=== PATIENT | female | born 1980 | race Caucasian/White ===

== ENCOUNTER 2019-12-23 18:54 | Emergency (ER) | payer OTHER, BC, SELFPAY ==
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
[2019-12-23 18:58] VITALS: BP 140/88; PULSE 73; RESP 16; TEMP 35.9; O2SAT 98; BMI 38.2
[2019-12-23 20:05] VITALS: BP 115/67; PULSE 66; RESP 16; O2SAT 99
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
== END 2019-12-23 21:25 | disposition home or self-care (01) ==
PROVIDERS: Emergency Provider Emergency Medicine; PCP Internal Medicine
DX: S13.4XXA Sprain of ligaments of cervical spine, initial encounter (principal); V43.52XA Car driver injured in collision with other type car in traffic accident, initial encounter; Y93.89 Activity, other specified; Y92.414 Local residential or business street as the place of occurrence of the external cause; Y99.9 Unspecified external cause status
CPT/HCPCS: 70450; 72125; 73502; 99284

== ENCOUNTER 2020-05-29 15:00 | Outpatient (RCR) | payer OTHER, BC, SELFPAY | END 2020-07-08 11:15 | disposition other institution (70) | LOC: HO.PT 15:00 | PROVIDERS: PCP Internal Medicine; Visit Provider Internal Medicine | DX: M54.2 Cervicalgia (principal); M54.9 Dorsalgia, unspecified; M25.569 Pain in unspecified knee; V89.2XXA Person injured in unspecified motor-vehicle accident, traffic, initial encounter | CPT/HCPCS: 97110; 97161; 97530 ==

== ENCOUNTER 2022-09-29 08:01 | Emergency (ER) | payer BC, SELFPAY ==
[2022-09-29] VITALS (8 sets, daily range): BP systolic 95–109; BP diastolic 59–73; PULSE 60–93; RESP 14–22; TEMP 36.4–37; O2SAT 94–96; BMI 38.3
--- NOTE | ~2022-09-29 | US_ITS ---
EXAMINATION: US PELVIC AND TRANSVAGINAL CLINICAL INFORMATION: Pelvic pain. Abnormal CT. LMP in August 2022. COMPARISON: CT abdomen/pelvis done earlier the same day. TECHNIQUE: Ultrasound of the pelvis is performed using both transabdominal and transvaginal transducers along with Doppler. Transvaginal imaging is performed due to inadequate visualization transabdominally. FINDINGS: Uterus: The uterus is anteverted and measures 8.3 x 4.4 x 5.2 cm. The endometrium is not well seen. Nabothian cysts. The uterus is smooth in contour and has normal myometrial echogenicity. There appears to be a subserosal, exophytic fibroid at the right side of the uterine fundus measuring 5.6 x 6.3 x 7.3 cm. No additional myometrial lesion. Adnexa: The right ovary is not well seen. The left ovary is sonographically unremarkable measuring 3.0 x 1.9 x 2.3 cm for a volume of 8.4 mm. No nabothian ovarian lesion. Normal Doppler detectable vascular flow within the left ovary. Moderate pelvic free fluid. US/US pelvic and transvaginal IMPRESSION: 1. Subserosal, exophytic right fundal probable fibroid measuring up to 7.3 cm. 2. Endometrium not well seen. 3. Sonographically unremarkable left ovary. Right ovary not seen. 4. Moderate pelvic free fluid.
--- NOTE | ~2022-09-29 | CT_ITS ---
EXAMINATION: CT ABDOMEN AND PELVIS WITH CONTRAST CLINICAL INFORMATION: Diffuse abdominal pain. COMPARISON: None available. TECHNIQUE: Multidetector volumetric images were obtained from the superior aspect of the liver through the pubic symphysis following administration 85 mL of Omnipaque 350 intravenous contrast. Sagittal and coronal reformatted images were obtained on the technologist's workstation. Oral contrast: No This CT examination was performed using dose optimization techniques as appropriate, variously including the following: *Automated exposure control *Adjustment of mA and/or kV according to patient size (this includes techniques or standardized protocols for targeted exams where dose is matched to indication/reason for exam; i.e. extremities or head) *Use of iterative reconstruction technique DLP: 964 mGy-cm FINDINGS: LUNG BASES: Mild bibasilar linear atelectasis or scarring. No pleural or pericardial effusions. LIVER, GALLBLADDER, AND BILIARY TREE: Mild diffuse decreased attenuation. Small cyst towards the dome demonstrates benign features. No gallbladder/biliary abnormality. PANCREAS: Unremarkable. SPLEEN: Unremarkable. ADRENAL GLANDS: Unremarkable. KIDNEYS AND URETERS: The kidneys are normal in size, shape, and attenuation. No hydronephrosis, hydroureter, or calculi seen. No perinephric stranding. BLADDER: Unremarkable. GASTROINTESTINAL TRACT: The stomach and small bowel are unremarkable. A retrocecal appendix is seen without overt abnormality. Colon and rectum are unremarkable. Mild infiltrative changes in the mesenteric fat. ABDOMINAL WALL: Small fat-containing umbilical hernia without abnormality. LYMPH NODES: No lymphadenopathy. VASCULAR: Unremarkable. PELVIC VISCERA: Anteverted/anteflexed uterus with a large subserosal/pedunculated fibroid is seen off of the superior margin of the fundus measuring approximately 7.7 x 6.6 x 5.3 cm. Probable smaller intramural fibroids are noted. Mild free fluid surrounds the uterus. Prominent gonadal veins are noted bilaterally. No definitive ovarian abnormality. Low-attenuation is seen in the cervix and vaginal canal with obscured margins. OSSEOUS STRUCTURES: Mild to moderate degenerative disc disease at L5-S1. CT/CT abdomen pelvis w IV con IMPRESSION: 1. Fibroid uterus with abnormal appearance of the cervix and vaginal canal without surrounding free fluid and infiltrative changes. Prominent gonadal veins bilaterally as well. This could be secondary to an infectious/inflammatory process. Malignancy would be less likely but cannot be excluded. Changes in the mesenteric fat is presumed reactive to this process. Gynecologic consultation is recommended recommended. Short-term follow-up contrast-enhanced CT and/or pelvic MRI recommended as indicated.
--- NOTE | 2022-09-29 08:12 | ED.ABDPAIN ---
HPI - Abdominal Pain General Chief Complaint: Abdominal Pain Stated Complaint: abd pain Time Seen by Provider: 09/29/22 08:03 Source: patient and family Mode of arrival: ambulatory Limitations: no limitations History of Present Illness HPI narrative: 42 yo female with history of PCOS, IBS-D, pre-diabetic, asthma here with complaints of diffuse abdominal pain since with dysuria, urinary frequency. No vomiting. Has had diarrhea but history of same. No fevers, chills, vaginal discharge, rashes/lesions, hematuria. LMP 09/03. No abdominal surgical history Related Data Previous Rx's Medication Instructions Recorded cefuroxime axetil 500 mg tablet 500 mg PO BID #14 tabs 09/29/22 oxycodone 5 mg tablet 5 mg PO Q8H PRN pain #5 tabs 09/29/22 phenazopyridine 200 mg tablet 200 mg PO TID PRN pain 6 doses #10 09/29/22 (Pyridium) tabs Allergies Allergy/AdvReac Type Severity Reaction Status Date / Time egg Allergy Itching Verified 12/23/19 19:05 Sulfa (Sulfonamide AdvReac Diarrhea Verified 12/23/19 19:05 Antibiotics) Review of Systems Review of Systems Yes all other systems are reviewed and are negative Constitutional: Reports no additional constitutional complaints, Denies body ache(s), Denies chills, Denies fever(s), Denies headache(s) and Denies weakness Eyes: Reports no additional eye complaints and Denies change in vision Reports system reviewed and no additional complaints, except as documented, Denies dizziness, Denies headache(s), Denies nasal congestion, Denies nasal discharge and Denies neck pain Cardiovascular: Reports no additional cardiovascular complaints, Denies chest pain, Denies leg edema and Denies dyspnea Respiratory: Reports no additional respiratory complaints, Denies cough and Denies dyspnea Gastrointestinal: Reports no additional gastrointestinal complaints, Reports abdominal pain, Reports diarrhea, Denies nausea and Denies vomiting Genitourinary: Reports no additional female genitourinary complaints, Denies hematuria, Reports dysuria, Denies pelvic pain, Denies flank pain, Denies urinary incontinence, Denies urinary hesitancy, Denies urinary urgency and Denies vaginal discharge Musculoskeletal: Reports no additional musculoskeletal complaints, Denies back pain, Denies arthralgias, Denies joint swelling, Denies neck pain, Denies numbness and Denies tingling Skin/Breast: Reports system reviewed and no additional complaints, except as docu and Denies rash Reports system reviewed and no additional complaints, except as documented, Denies dizziness, Denies headache(s), Denies numbness, Denies tingling and Denies weakness PMF Past Medical History Attestation statement: The following information was validated with the patient. Source: old records reviewed and nursing notes reviewed Medical History IBS (irritable bowel syndrome) PCOS (polycystic ovarian syndrome) Social History Social History Alcohol intake: never Smoked in Last 30 Days: No Use of substances other than those prescribed or required for medical reasons: No Advance Directives: No Advance Directives Information Provided: Yes Physical Exam ED Vital Signs: Vital Signs - 24 hr 09/29/22 08:07 09/29/22 09:02 09/29/22 10:00 Temperature 98.6 F 98.6 F Pulse Rate 93 60 63 Respiratory Rate 18 15 15 Blood Pressure 109/73 106/59 L 103/59 L Pulse Oximetry 95 96 95 Oxygen Delivery Method Room Air Room Air Room Air 09/29/22 10:44 09/29/22 10:50 09/29/22 12:24 Temperature 97.6 F 98 F Pulse Rate 62 66 65 Respiratory Rate 17 14 22 H Blood Pressure 100/66 100/66 Pulse Oximetry 95 94 Oxygen Delivery Method Room Air Room Air 09/29/22 12:31 Temperature 97.6 F Pulse Rate Respiratory Rate Blood Pressure Pulse Oximetry Oxygen Delivery Method BMI result Body Mass Index 38.3 Const General: cooperative, healthy appearing, comfortable and no acute distress Orientation/consciousness: patient oriented x3 Limitations: no limitations HENMT Head: Yes normal to inspection Ears: hearing grossly normal bilaterally Eyes General: appearance normal, both eyes and all related structures Pupils: Equal, round and reactive pupils present Neck Neck: Yes normal visual inspection and Yes full ROM Chest Chest palpation & inspection: normal inspection of the chest Resp Effort & Inspection: normal respiratory effort Auscultation: clear to auscultation bilaterally Cardio Rate: regular rate Rhythm: regular rhythm Peripheral pulses: Peripheral pulses 2+ throughout GI Inspection: Yes normal to inspection Palpation (GI): Soft to palpation, Tenderness to palpation present (GI) (diffuse TTP) with no rebound tenderness and no guarding Auscultation: normal bowel sounds 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 uterine on bimanual No adnexal tenderness or CMT General: Yes no CVA tenderness External Female Exam: normal external appearance Speculum Exam - Vagina: normal appearance of the vagina Speculum Exam - Cervix: normal appearance of the cervix Bimanual exam- vagina & uterus: normal bimanual exam Bimanual Exam- Adnexa, other: normal adnexae Back/Spine/Pelvis Back: no CVA tenderness Skin General skin exam: no rashes or lesions noted Neuro General: patient oriented x3 and moves all extremities Cranial nerves: Yes Equal, round and reactive pupils present Cognition (Neuro): normal cognition Gait exam (Neuro): Normal gait present Extrem General: Yes normal to inspection, Yes no pedal edema and Yes no calf tenderness Course Course Course Narrative: 1024- CT A/P shows IMPRESSION: ? 1. Fibroid uterus with abnormal appearance of the cervix and vaginal canal without surrounding free fluid and infiltrative changes. Prominent gonadal veins bilaterally as well. This could be secondary to an infectious/inflammatory process. Malignancy would be less likely but cannot be excluded. ? Changes in the mesenteric fat is presumed reactive to this process. Gynecologic consultation is recommended recommended. Short-term follow-up contrast-enhanced CT and/or pelvic MRI recommended as indicated. Will need pelvic US, pelvic exam with CT NG, BV panel Has UTI-will give rocephin Reevaluation(s) Reevaluation #1: 1245-ultrasound shows a uterus in fibroid. The left ovary is visualized with normal vascular flow. The right ovary is not visualized. Low concern for ovarian torsion. Pain has been gradual in onset over the last few days. There is no colicky pain to suggest intermittent torsion. I did review the findings with the patient. She should follow up outpatient with gynecology. She has low concern for STI. We did send cultures. Reviewed worrisome signs and symptoms of when to return to the emergency room. Comfortable plan for discharge home. Medical Decision Making Medical Decision Making MDM Narrative: 42 yo female here with diffuse AP, dysuria/urinary frequency since . On exam diffuse abdominal TTP with no rebound or guarding. +BS. Will need labs, UA/ur preg, CT A/P, IV pain control Differential Diagnosis Differential Diagnoses: The differential diagnosis associated with the presentation includes pancreatitis, appendicitis, renal colic/pyelo/uti Lab Data MDM Lab Attestation statement: I reviewed the patient's lab results. 09/29/22 08:36 09/29/22 08:36 Labs: Lab Results 09/29/22 09/29/22 09/29/22 Range/Units 08:36 08:36 10:02 WBC 6.8 (4.8-10.8) X10*3/uL RBC 4.48 (4.20-5.50) X10*6/uL Hgb 12.8 (12.0-16.0) g/dl Hct 39.9 (37.0-47.0) % MCV 89.1 (80.0-98.0) fL MCH 28.6 (27.0-33.0) pg MCHC 32.1 (31.0-35.0) g/dl RDW 13.6 (11.0-16.0) % Plt Count 204 (160-400) X10*3/uL MPV 11.2 (9.4-12.3) fL Immature Gran % (Auto) 0.3 (0.0-0.4) % Neut % (Auto) 66.0 (45-73) % Lymph % (Auto) 23.1 (20-40) % Starke % (Auto) 7.5 (2-11) % Eos % (Auto) 2.8 (0-4) % Baso % (Auto) 0.3 (0-2) % Lymph # (Auto) 1.6 (1.2-4.9) X10*3/uL Starke # (Auto) 0.5 (0.1-1.2) X10*3/uL Eos # (Auto) 0.2 (0.0-0.4) X10*3/uL Baso # (Auto) 0.0 (0.0-0.2) X10*3/uL Abs Immat Gran (auto) 0.02 (0.00-0.03) X10*3/uL Absolute Neuts (auto) 4.5 (2.0-8.3) x10*3/uL Absolute Nucleated RBC 0.000 (0.0-0.012) X10*3/uL Nucleated RBC % (auto) 0.0 (0.0-0.2) /100WBC Sodium 139 (135-145) mmol/L Potassium 4.0 (3.3-5.1) mmol/L Chloride 107 (96-108) mmol/L Carbon Dioxide 26 (22-29) mmol/L Anion Gap 10 L (12-20) BUN 6 L (9-16) mg/dL Creatinine 0.68 (0.5-1.4) mg/dL Estim Creat Clear Calc 117.6 Estimated GFR > 60 Random Glucose 121 H (60-115) mg/dL Calcium 9.7 (8.4-10.2) mg/dL Total Bilirubin 0.7 (0.0-1.0) mg/dL Direct Bilirubin 0.2 (0.0-0.5) mg/dL AST 31 (5-31) U/L ALT 25 (0-31) U/L Alkaline Phosphatase 83 (39-117) U/L Total Protein 7.0 (6.5-8.0) g/dL Albumin 3.3 L (3.5-5.0) g/dL Lipase 6 L (8-78) U/L Urine Color Yellow Urine Appearance Clear Urine pH 6.0 (5.0-9.0) Ur Specific Bruno >= 1.030 H (1.005-1.025) Urine Protein Negative (Neg-Trace) mg/dL Urine Glucose (UA) Negative (Negative) mg/dL Urine Ketones Negative (Negative) mg/dL Urine Blood Negative (Negative) Urine Nitrite Negative (Negative) Ur Leukocyte Esterase Trace H (Negative) Urine RBC 0-2 (0-2) /HPF Urine WBC 6-10 H (0-5) /HPF Ur Squamous Epith Cells 6-10 (0-2) /HPF Urine Bacteria 1+ (None Seen) Hyaline Casts 0-2 (0-2) /LPF Urine Test (NEGATIVE) 09/29/22 Range/Units 10:02 WBC (4.8-10.8) X10*3/uL RBC (4.20-5.50) X10*6/uL Hgb (12.0-16.0) g/dl Hct (37.0-47.0) % MCV (80.0-98.0) fL MCH (27.0-33.0) pg MCHC (31.0-35.0) g/dl RDW (11.0-16.0) % Plt Count (160-400) X10*3/uL MPV (9.4-12.3) fL Immature Gran % (Auto) (0.0-0.4) % Neut % (Auto) (45-73) % Lymph % (Auto) (20-40) % Starke % (Auto) (2-11) % Eos % (Auto) (0-4) % Baso % (Auto) (0-2) % Lymph # (Auto) (1.2-4.9) X10*3/uL Starke # (Auto) (0.1-1.2) X10*3/uL Eos # (Auto) (0.0-0.4) X10*3/uL Baso # (Auto) (0.0-0.2) X10*3/uL Abs Immat Gran (auto) (0.00-0.03) X10*3/uL Absolute Neuts (auto) (2.0-8.3) x10*3/uL Absolute Nucleated RBC (0.0-0.012) X10*3/uL Nucleated RBC % (auto) (0.0-0.2) /100WBC Sodium (135-145) mmol/L Potassium (3.3-5.1) mmol/L Chloride (96-108) mmol/L Carbon Dioxide (22-29) mmol/L Anion Gap (12-20) BUN (9-16) mg/dL Creatinine (0.5-1.4) mg/dL Estim Creat Clear Calc Estimated GFR Random Glucose (60-115) mg/dL Calcium (8.4-10.2) mg/dL Total Bilirubin (0.0-1.0) mg/dL Direct Bilirubin (0.0-0.5) mg/dL AST (5-31) U/L ALT (0-31) U/L Alkaline Phosphatase (39-117) U/L Total Protein (6.5-8.0) g/dL Albumin (3.5-5.0) g/dL Lipase (8-78) U/L Urine Color Urine Appearance Urine pH (5.0-9.0) Ur Specific Bruno (1.005-1.025) Urine Protein (Neg-Trace) mg/dL Urine Glucose (UA) (Negative) mg/dL Urine Ketones (Negative) mg/dL Urine Blood (Negative) Urine Nitrite (Negative) Ur Leukocyte Esterase (Negative) Urine RBC (0-2) /HPF Urine WBC (0-5) /HPF Ur Squamous Epith Cells (0-2) /HPF Urine Bacteria (None Seen) Hyaline Casts (0-2) /LPF Urine Test NEGATIVE (NEGATIVE) Independent Interpretation I performed an independent interpretation of an: CT Scan Interpretation: I independently reviewed the CT and agree with the rad report Radiology Impression Discussion of test interpretation with radiology: I have reviewed the radiologist's reading. Radiologist Impression: FINDINGS: LUNG BASES: Mild bibasilar linear atelectasis or scarring. No pleural or pericardial effusions. LIVER, GALLBLADDER, AND BILIARY TREE: Mild diffuse decreased attenuation. Small cyst towards the dome demonstrates benign features. No gallbladder/biliary abnormality. PANCREAS: Unremarkable.? SPLEEN: Unremarkable.? ADRENAL GLANDS: Unremarkable.? KIDNEYS AND URETERS: The kidneys are normal in size, shape, and attenuation. No hydronephrosis, hydroureter, or calculi seen. No perinephric stranding. ? BLADDER: Unremarkable.? GASTROINTESTINAL TRACT: The stomach and small bowel are unremarkable. A retrocecal appendix is seen without overt abnormality. Colon and rectum are unremarkable. Mild infiltrative changes in the mesenteric fat. ABDOMINAL WALL: Small fat-containing umbilical hernia without abnormality.? LYMPH NODES: No lymphadenopathy. VASCULAR: Unremarkable. PELVIC VISCERA: Anteverted/anteflexed uterus with a large subserosal/pedunculated fibroid is seen off of the superior margin of the fundus measuring approximately 7.7 x 6.6 x 5.3 cm. Probable smaller intramural fibroids are noted. Mild free fluid surrounds the uterus. Prominent gonadal veins are noted bilaterally. No definitive ovarian abnormality. Low-attenuation is seen in the cervix and vaginal canal with obscured margins.? OSSEOUS STRUCTURES: Mild to moderate degenerative disc disease at L5-S1.? CT/CT abdomen pelvis w IV con IMPRESSION: ? 1. Fibroid uterus with abnormal appearance of the cervix and vaginal canal without surrounding free fluid and infiltrative changes. Prominent gonadal veins bilaterally as well. This could be secondary to an infectious/inflammatory process. Malignancy would be less likely but cannot be excluded. ? Changes in the mesenteric fat is presumed reactive to this process. Gynecologic consultation is recommended recommended. Short-term follow-up contrast-enhanced CT and/or pelvic MRI recommended as indicated. ? Independent Historian Clinical information obtained from an independent historian. History obtained from or confirmed by: Spouse Clinical information obtained from spouse and confirmed with patient Medications Administered Discontinued Medications Generic Name Dose Route Start Last Admin Trade Name Freq PRN Reason Stop Dose Admin Sodium Chloride 1,000 mls @ 999 mls/hr 09/29/22 08:15 09/29/22 10:45 Ns IV 09/29/22 09:15 Infused .Q1H1M STA Infusion Ceftriaxone Sodium 1 gm/ 50 mls @ 100 mls/hr 09/29/22 10:23 09/29/22 11:32 Sodium Chloride IV 09/29/22 10:52 Infused ONCE ONE Infusion Iohexol 100 ml 09/29/22 09:21 09/29/22 09:21 Iohexol 350 Mg/Ml 100 Ml Infus..Btl IV 09/29/22 09:22 100 ml ONCE ONE Administration Morphine Sulfate 4 mg 09/29/22 08:15 09/29/22 08:42 Morphine Sulfate 4 Mg/Ml Cartridge IVPUSH 09/29/22 08:16 4 mg ONCE ONE Administration Protocol Ondansetron HCl 4 mg 09/29/22 08:15 09/29/22 08:41 Ondansetron Hcl 4 Mg/2 Ml Vial IVPUSH 09/29/22 08:16 4 mg ONCE ONE Administration Discharge Plan Discharge Clinical Impression: Fibroid, uterine, UTI (urinary tract infection) Patient Disposition: Home, Self-Care Instructions: Urinary Tract Infection in Women (ED) Additional Instructions: Increase fluids, rest Your ultrasound shows a uterine fibroid. Please follow-up with your [employer] Return for worsening pain, vomiting or fever Prescriptions: New phenazopyridine [Pyridium] 200 mg tablet 200 mg PO TID PRN (Reason: pain) Qty: 10 0RF cefuroxime axetil 500 mg tablet 500 mg PO BID Qty: 14 0RF oxycodone 5 mg tablet 5 mg PO Q8H PRN (Reason: pain) Qty: 5 0RF Rx Instructions: Partial Fill upon patient request. Referrals: Physician,Unknown J [Primary Care Provider] -
[2022-09-29 08:41] LABS: MANUAL DIFF FLAG NO
[2022-09-29] MEDS: ondansetron HCL 4 MG/2 ML VIAL IVPUSH (08:41)
[2022-09-29] MEDS: 0.9 % Sodium Chloride 1,000 ML 999 ML IV (08:41)
[2022-09-29 08:42] LABS: Basophils Percent Auto 0.3 % (0-2); Eosinophils Absolute Auto 0.2 X10*3/uL (0.0-0.4); Eosinophils Percent Auto 2.8 % (0-4); Hematocrit 39.9 % (37.0-47.0); Hemoglobin 12.8 g/dl (12.0-16.0); Imm Gran Abs Auto 0.02 X10*3/uL (0.00-0.03); Imm Gran Pct Auto 0.3 % (0.0-0.4); Lymphocytes Absolute Auto 1.6 X10*3/uL (1.2-4.9); Lymphocytes Percent Auto 23.1 % (20-40); Mean Corpuscular HGB Conc 32.1 g/dl (31.0-35.0); Mean Corpuscular Hemoglobin 28.6 pg (27.0-33.0); Mean Corpuscular Volume 89.1 fL (80.0-98.0); Mean Platelet Volume 11.2 fL (9.4-12.3); Monocytes Absolute Auto 0.5 X10*3/uL (0.1-1.2); Monocytes Percent Auto 7.5 % (2-11); Neutrophils Absolute Auto 4.5 x10*3/uL (2.0-8.3); Platelet Count 204 X10*3/uL (160-400); Red Blood Count 4.48 X10*6/uL (4.20-5.50); Red Cell Distribution Width 13.6 % (11.0-16.0); White Blood Count 6.8 X10*3/uL (4.8-10.8)
[2022-09-29] MEDS: Morphine Sulfate 4 MG/ML CARTRIDGE IVPUSH (08:42)
[2022-09-29 08:56] LABS: Alanine Aminotransferase 25 U/L (0-31); Albumin Level 3.3 g/dL (3.5-5.0); Alkaline Phosphatase 83 U/L (39-117); Anion Gap 10 (12-20); Aspartate Amino Transferase 31 U/L (5-31); Bilirubin Direct 0.2 mg/dL (0.0-0.5); Bilirubin Total 0.7 mg/dL (0.0-1.0); Blood Urea Nitrogen 6 mg/dL (9-16); Calcium 9.7 mg/dL (8.4-10.2); Carbon Dioxide 26 mmol/L (22-29); Chloride 107 mmol/L (96-108); Creatinine Clr Calc Pharmacy 117.6; Estimated Glomerular Filt Rate > 60; Glucose Random 121 mg/dL (60-115); Lipase 6 U/L (8-78); Sodium 139 mmol/L (135-145)
[2022-09-29] MEDS: iohexoL 350 MG/ML 100 ML INFUS..BTL IV (09:21)
[2022-09-29 10:07] LABS: Appearance Urine Clear; Color Urine Yellow; Glucose Urine UA Negative (Negative); Leukocyte Esterase Urine Trace (Negative); Nitrite Urine Negative (Negative); Specific Gravity - Urine >= 1.030 (1.005-1.025); UMIC TRIGGER UACC YES; Urine Blood Negative (Negative); Urine Ketones Negative (Negative); Urine Protein Negative (Neg-Trace)
[2022-09-29 10:09] LABS: UPreg QC Valid YES; Urine Pregnancy NEGATIVE (NEGATIVE)
[2022-09-29 10:10] LABS: Bacteria Urine 1+ (None Seen); Hyaline Casts Urine 0-2 /LPF (0-2); RBC Urine 0-2 /HPF (0-2); UACC Culture Trigger YES
[2022-09-29] MEDS: cefTRIAXone sodium 1 GM in 0.9 % Sodium Chloride 50 ML IV (10:44)
--- NOTE | 2022-09-29 10:51 | PC.NURSE ---
resting. reports decreased pain. iv abx infusing.
--- NOTE | 2022-09-29 12:12 | PC.NURSE ---
calm, cooperative. no distress noted. provider doing pelvic at this time.
[2022-09-29 15:33] LABS: CT PCR NOT DETECTED (Not Detect.); NG PCR NOT DETECTED (Not Detect.)
[2022-09-30 14:55] LABS: BV Int Neg Control Negative (Negative); BV Int Pos Control Positive (Positive)
== END 2022-09-29 12:59 | disposition home or self-care (01) ==
PROVIDERS: Nurse Practitioner Family; Emergency Provider Student in an Organized Health Care Education/Training Program
DX: D25.2 Subserosal leiomyoma of uterus (principal); N39.0 Urinary tract infection, site not specified; R10.9 Unspecified abdominal pain; R30.0 Dysuria; R35.0 Frequency of micturition; R39.89 Other symptoms and signs involving the genitourinary system; E28.2 Polycystic ovarian syndrome; K58.0 Irritable bowel syndrome with diarrhea; Z79.899 Other long term (current) drug therapy
CPT/HCPCS: 0353U; 36415; 74177; 76830; 76856; 80048; 80076; 81001; 81025; 83690; 85025; 87086; 87480; 87510; 87660; 96361; 96365; 96375; 99284; 99285; J0696; J2270; J2405; Q9967

== ENCOUNTER 2024-05-03 08:23 | Outpatient (REF) | payer SELFPAY ==
[2024-05-03 11:05] LABS: Influenza A PCR POSITIVE (Negative); Influenza B PCR NEGATIVE (Negative); Resp Syncy Virus RNA Qual PCR NEGATIVE (Negative); SARS COV2 PCR INHOUSE NEGATIVE (Negative)
== END 2024-05-03 08:24 | disposition home or self-care (01) ==
LOC: HO.LAB 08:23
PROVIDERS: Physician Assistant
DX: J06.9 Acute upper respiratory infection, unspecified (principal)
CPT/HCPCS: 0241U

== ENCOUNTER 2024-05-03 08:23 | Outpatient (AMB) | payer OTHER, SELFPAY ==
--- NOTE | 2024-05-03 08:24 | AM.OFFWIN_ITS ---
Intake Vital Signs 05/03/24 08:25 Weight 207 lb BP 116/74 Blood Pressure Location Lt brachial Position Sitting Pulse 93 Pulse Source Pulse Oximeter Temp 101.3 F H Temp Source Oral Pulse Oximetry (%) 96 Oxygen Delivery Method Room Air Intake Visit Reasons: EP Fever, cough, congestion, chills Intake Note: Patient here for cough, fever,chills, congestion and runny nose since friday. Patient Tobacco Use Status: Never used Tobacco Allergies egg Allergy (Verified 05/03/24 08:33) Itching Sulfa (Sulfonamide Antibiotics) Adverse Reaction (Verified 05/03/24 08:33) Diarrhea Do you need a note to return to daycare/school/sports/work: Yes HPI HPI Comments History of Present Illness Details History - The patient is a 43-year-old female pr esenting with symptoms consistent with influenza. - Symptoms commenced three days ago, sta rting with nasal congestion, followed by fever, chills, and productive cough. - The patient has self-managed with DayQ uil, NyQuil, and ibuprofen but reports persistent head congestion and pressure. - The patient has asthma and reports exa cerbation, including wheezing and increased albuterol inhaler use. - Family members with similar symptoms w ere tested for influenza. - Confirmed influenza vaccination for , but still contracted illness. - No gastrointestinal symptoms are repor royer currently. Physical Exam General: Cooperative, healthy appearing, comfortable and no acute distress Orientation/consciousness: Patient oriented x3 Limitations: No limitations Head: Normal to inspection Ears: Hearing grossly normal bilaterally, external ears normal and TM's normal bilaterally Nose: Normal external nose present, Normal nares present and No nasal discharge present Face and sinus: Normal facial exam and Yes sinuses nontender Mouth: Normal oral and palatal mucosa present and moist mucous membranes Throat: Yes tonsils normal, Yes uvula midline. Posterior oropharynx erythema Eyes: Appearance normal, both eyes and all related structures Neck: Normal visual inspection Respiratory: Clear to auscultation bilaterally. Normal respiratory effort, able to speak in complete sentences, Actively coughing, no respiratory distress, not tachypneic, no tripod positioning and no use of accessory muscles Cardiovascular: Regular rate and rhythm. Normal S1 and S2 Skin: No rashes or lesions noted Neuro: Patient oriented x3 Extremities: Normal to inspection and Yes no clubbing, cyanosis or edema [facility] Medical History IBS (irritable bowel syndrome) PCOS (polycystic ovarian syndrome) Social History Alcohol intake: never Patient Tobacco Use Status: Never used Tobacco Review of Systems Const All systems reviewed & are unremarkable except as noted in HPI and below Physical Exam Vital Signs: Last Vital Signs Temp 101.3 F H 05/03/24 08:25 Pulse 93 05/03/24 08:25 BP 116/74 05/03/24 08:25 Pulse Ox 96 05/03/24 08:25 Oxygen Delivery Method Room Air 05/03/24 08:25 Assessment & Plan Assessment & Plan (1) URI, acute: Code(s): J06.9 - Acute upper respiratory infection, unspecified Plan: Plan The patient presented with symptoms consistent with influenza exacerbating her asthma. Tessalon Perles was prescribed to manage her cough, particularly at night, to minimize disturbances to her rest. A new prescription for the albuterol inhaler was sent to the pharmacy due to increased frequency of use. Symptomatic management with rest, hydration, and [id number] medications was advised. The potential use of antiviral treatment was discussed, but not initiated due to symptom duration and potential side effects. A work note was provided to facilitate necessary rest. Further management will consider testing results and patient preference for oseltamivir if indicated. Patient was informed and verbally consented to the use of an ambient scribe for clinic note documentation during this visit Orders: Orders SARS-CoV2/FLU/RSV Today J06.9 - Acute upper respiratory infection, unspecified Medications: New albuterol sulfate 90 mcg/actuation 2 puffs inhalation Q6H PRN 8.5 grams 0RF shortness of breath or wheezing or cough benzonatate 200 mg PO TID PRN 14 caps 0RF cough Discontinued oxycodone Partial Fill upon patient request. Discontinued Reason: Patient Completed Course 5 mg PO Q8H PRN 5 tabs 0RF pain cefuroxime axetil Discontinued Reason: Patient Completed Course 500 mg PO BID 14 tabs 0RF phenazopyridine (Pyridium) Discontinued Reason: Patient Completed Course 200 mg PO TID PRN 10 tabs 0RF pain Coding Level of Care Code New Pt Level 3 (03240) Diagnoses URI, acute J06.9
[2024-05-03 08:25] VITALS: BP 116/74; PULSE 93; TEMP 38.5; O2SAT 96
== END 2024-05-03 08:59 | disposition home or self-care (01) ==
PROVIDERS: Visit Provider Physician Assistant
DX: J06.9 Acute upper respiratory infection, unspecified (principal)

== ENCOUNTER 2025-02-21 10:56 | Outpatient (AMB) | payer OTHER, SELFPAY ==
[2025-02-21 11:02] VITALS: BP 130/80; PULSE 83; TEMP 37; O2SAT 100; BMI 37.2
--- NOTE | 2025-02-21 11:02 | AM.OFFWIN_ITS ---
Intake Vital Signs 02/21/25 11:02 Height 5 ft 3 in Weight 210 lb BMI 37.2 BP 130/80 Blood Pressure Location Rt brachial Position Sitting Pulse 83 Pulse Source Pulse Oximeter Temp 98.6 F Temp Source Oral Pulse Oximetry (%) 100 Oxygen Delivery Method Room Air Intake Visit Reasons: EP Blisters on both feet Intake Note: pt presents with severely painful blistering to bilateral feet for 5 days after wearing winter boots all day during hospital rounds Patient Tobacco Use Status: Never used Tobacco Allergies egg Allergy (Verified 02/21/25 11:08) Itching Sulfa (Sulfonamide Antibiotics) Adverse Reaction (Verified 02/21/25 11:08) Diarrhea Do you need a note to return to daycare/school/sports/work: Yes HPI HPI Comments History of Present Illness Details 44 y/o female presents to the [facility] with painful blisters on both heels. She reports that the blisters have been present for the past 5 days. She attributes them to increased walking at work while wearing snow boots. Patient works as a float nurse, which requires covering multiple departments. Denies fever, chills, or other systemic symptoms. No history of similar lesions. [facility] Medical History (Updated 02/21/25 @ 12:17 by Leonor Redman NP) Friction blister PCOS (polycystic ovarian syndrome) IBS (irritable bowel syndrome) Social History Alcohol intake: never Patient Tobacco Use Status: Never used Tobacco Physical Exam Vital Signs: Last Vital Signs Temp 98.6 F 02/21/25 11:02 Pulse 83 02/21/25 11:02 BP 130/80 02/21/25 11:02 Pulse Ox 100 02/21/25 11:02 Oxygen Delivery Method Room Air 02/21/25 11:02 BMI result Body Mass Index 37.2 Const General: no acute distress Nutritional Appearance: obese Orientation/consciousness: patient oriented x3 Skin Other: Bilateral heels: Presence of intact blisters; surrounding erythema noted; no overt signs of infection (pus, warmth, significant redness spreading beyond blister). Neuro General: patient oriented x3, gait normal and moves all extremities Assessment & Plan Assessment & Plan (1) Friction blister: Code(s): T14.8XXA - Other injury of unspecified body region, initial encounter Plan: Bilateral heel friction blisters likely secondary to prolonged walking and ill- fitting footwear (snow boots) No evidence of secondary infection at this time. Keep blisters clean and dry. Recommended wearing well-fitted, cushioned shoes with moisture-wicking socks. Avoid prolonged walking in snow boots until healing occurs. Watch for signs of infection: increasing redness, warmth, swelling, pus, or fever. Coding Level of Care Code Est Pt Level 4 (74862) Diagnoses Friction blister T14.8XXA Time Spent (min) 20
== END 2025-02-21 11:32 | disposition home or self-care (01) ==
PROVIDERS: Visit Provider Nurse Practitioner Family
DX: T14.8XXA Other injury of unspecified body region, initial encounter (principal)